=== PATIENT | male | born 1965 | race African-American/Black ===

== ENCOUNTER 2021-01-10 17:59 | Emergency (ER) | payer OTHER ==
[~2021-01-10] VITALS: Ht 190.5 cm; Wt 81.7 kg
[2021-01-10 19:01] LABS: ABSOLUTE NEUTROPHILS 3.5 thou/uL (1.4-8.2); BASOPHILS 1.2 % (0.0-2.0); EOSINOPHILS 2.1 % (0.0-3.0); HEMATOCRIT 45.6 % (42.0-52.0); HEMOGLOBIN 14.8 gm/dL (14.0-18.0); LYMPHOCYTES 26.2 % (24.0-44.0); MCH 29.3 pg (26.0-34.0); MCHC 32.4 g/dL (28.0-37.0); MCV 90.5 fL (80.0-100.0); PLATELET COUNT 196 thou/uL (150-400); POLYS 62.5 % (36.0-66.0); RBC 5.04 mil/uL (4.50-6.00); RDW 14.5 % (10.5-14.5); WBC 5.7 thou/uL (4.0-11.0)
[2021-01-10 19:03] LABS: ANION GAP < 0 mmol/L (7-16); BUN 18 mg/dL (7-18); CALCIUM 8.6 mg/dL (8.5-10.1); CHLORIDE 103 mmol/L (98-107); CO2 36 mmol/L (21-32); CREATININE 1.1 mg/dL (0.7-1.3); GLUCOSE 178 mg/dL (74-106); POTASSIUM 4.2 mmol/L (3.5-5.1); SODIUM 136 mmol/L (136-145)
[2021-01-10 19:09] LABS: ALBUMIN 1.4 g/dL (3.4-5.0); SGOT 21 U/L (15-37); SGPT 23 U/L (16-63); TOTAL BILIRUBIN 0.4 mg/dL (0.2-1.0); TOTAL PROTEIN 6.6 g/dL (6.4-8.2)
[2021-01-10] MEDS ORDERED: METFORMIN HCL500 M3 PO (20:55)
[2021-01-10] MEDS ORDERED: PRAVACHOL 20 MG20 M1 PO (20:55)
[2021-01-10 20:58] VITALS: BP 120/82
[2021-01-10] MEDS ORDERED: NAPROSYN500 MG PO (20:59)
== END 2021-01-10 21:15 | disposition home or self-care (01) ==
LOC: ER 17:59
PROVIDERS: Emergency Medicine
DX: S06.0X0A Concussion without loss of consciousness, initial encounter (principal); S16.1XXA Strain of muscle, fascia and tendon at neck level, initial encounter; S29.012A Strain of muscle and tendon of back wall of thorax, initial encounter; E11.9 Type 2 diabetes mellitus without complications; Z79.84 Long term (current) use of oral hypoglycemic drugs; Z79.899 Other long term (current) drug therapy; V49.3XXA Car occupant (driver) (passenger) injured in unspecified nontraffic accident, initial encounter; Y93.89 Activity, other specified; Y92.89 Other specified places as the place of occurrence of the external cause; Y99.8 Other external cause status